=== PATIENT | female | born 1960 | race American Indian/Alaskan Native ===

== ENCOUNTER 2019-09-27 18:58 | Emergency (ER) | payer OTHER ==
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
[2019-09-27] MEDS ORDERED: IBUPROFEN 800 MG TAB PO ONE (22:04)
[2019-09-27] MEDS ORDERED: HYDROcodone/ACETAMINOPHEN 5-325 MG TAB PO ONE ×2 (22:04→23:58)
[2019-09-27] MEDS ORDERED: diazePAM 5 MG TAB PO ONE (22:04)
[2019-09-27] MEDS ORDERED: diphenhydrAMINE 50 MG/ML VIAL IM ONE ×2 (22:05→23:58)
--- NOTE | 2019-09-27 23:10 | Cat Scan Report ---
CT thoracic spine without contrast INDICATION: TECHNIQUE: Axial imaging performed through the thoracic spine without the use of contrast. Sagittal and coronal reconstructed images were also reviewed. All CT scans at this location are performed us ing CT dose reduction for ALARA by means of automated exposure control. COMPARISON: None FINDINGS: Alignment: Spinal alignment is normal. Bones: There is no acute osseous abnormality. Mild multilevel discogenic DJD is present. Soft tissues: No acute or significant incidental soft tissue abnormality. IMPRESSION: No acute abnormality. Signer Name: Hakeem Aggarwal MD Signed: 09/27/2019 11:06 PM Workstation Name: [id number]
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
[2019-09-27] MEDS ORDERED: CYCLOBENZAPRINE 10 MG TAB PO ONE (23:17)
[2019-09-28 01:21] VITALS: BP 132/79
== END 2019-09-28 01:20 | disposition home or self-care (01) ==
LOC: ED 18:58
DX: S16.1XXA Strain of muscle, fascia and tendon at neck level, initial encounter (principal); S39.012A Strain of muscle, fascia and tendon of lower back, initial encounter; S80.02XA Contusion of left knee, initial encounter; R07.89 Other chest pain; M62.830 Muscle spasm of back; Z79.899 Other long term (current) drug therapy; Z88.6 Allergy status to analgesic agent; Z88.1 Allergy status to other antibiotic agents; Z88.8 Allergy status to other drugs, medicaments and biological substances; V49.49XA Driver injured in collision with other motor vehicles in traffic accident, initial encounter; Y93.89 Activity, other specified; Y92.410 Unspecified street and highway as the place of occurrence of the external cause; Y99.8 Other external cause status
CPT/HCPCS: 71111; 72040; 72128; 72131; 73562; 93005; 93010; 96372; 99284; J1200